=== PATIENT | female | born 1960 | race Hispanic/Latino ===

== ENCOUNTER 2021-10-30 13:45 | Emergency (ER) | payer OTHER ==
[~2021-10-30] VITALS: Ht 162.6 cm; Wt 72.1 kg
[2021-10-30] MEDS ORDERED: TRAMADOL HCL 50 MG TAB PO STA (13:56)
[2021-10-30] MEDS ORDERED: KETOROLAC TROMETHAMINE 60 MG/2 ML VIAL ONE (14:11)
[2021-10-30] MEDS ORDERED: TRAMADOL HCL 50 MG TAB ONE (14:12)
[2021-10-30] MEDS ORDERED: ULTRAM 50MG50 MG PO (14:18)
[2021-10-30] MEDS ORDERED: KETOROLAC TROMETHAMINE 60 MG/2 ML VIAL IM ONE (14:30)
== END 2021-10-30 14:30 | disposition home or self-care (01) ==
LOC: FSED 13:49
DX: M54.50 Low back pain, unspecified (principal); X50.1XXA Overexertion from prolonged static or awkward postures, initial encounter; Y93.H2 Activity, gardening and landscaping; Y92.096 Garden or yard of other non-institutional residence as the place of occurrence of the external cause
CPT/HCPCS: 96372; 99282; J1885